=== PATIENT | female | born 1985 | race Caucasian/White ===

== ENCOUNTER 2025-07-15 10:52 | Inpatient (IN) | payer OTHER ==
[~2025-07-15] VITALS: Ht 152.4 cm; Wt 82.7 kg
[2025-07-15 12:30] LABS: PLATELET COUNT (AUTO) 448 K/uL (150-450); RED BLOOD CELL COUNT(AUTO) 4.37 MIL/uL (4.00-5.20); RED CELL DISTRIBUTION WIDTH 15.7 % (11.5-14.5); WHITE BLOOD COUNT (AUTO) 9.5 K/uL (4.5-11.0)
[2025-07-15 12:36] LABS: CALCIUM, TOTAL 9.0 mg/dL (8.8-10.5); CREATININE 0.59 mg/dL (0.60-1.30); GLOMERULAR FILTR. RATE CALC > 60 mL/min (>60); GLUCOSE,RANDOM 99 mg/dL (70-110); SODIUM SERUM 136 mmol/L (136-145); UREA NITROGEN, BLOOD 7 mg/dL (7-18)
[2025-07-15 12:45] LABS: TROPONIN I-HIGH SENSITIVITY 5 ng/L (<51)
[2025-07-15 12:47] LABS: ASPARTATE AMINOTRANSFERASE 24 U/L (15-37); HCG,QUANTITATIVE < 1 mIU/mL (0-6); TOTAL PROTEIN, SERUM 7.3 g/dL (6.4-8.2)
[2025-07-15] MEDS ORDERED: BISACODYL 10 MG RECTAL RECTAL SUPPOSITORY PR PRN (14:30)
[2025-07-15] MEDS ORDERED: ONDANSETRON HCL 4 MG/2 ML VIAL IVP PRN (14:30)
[2025-07-15] MEDS ORDERED: HYDROCODONE/ACETAMINOPHEN 5-325 MG TABLET PO PRN (14:30)
[2025-07-15] MEDS ORDERED: MAGNESIUM HYDROXIDE SUSPENSION 30 ML UDCUP PO PRN (14:30)
[2025-07-15] MEDS ORDERED: ACETAMINOPHEN 325 MG TABLET PO PRN (14:30)
[2025-07-15] MEDS ORDERED: MORPHINE SULFATE 2 MG/ML SYRINGE IVP PRN (14:30)
[2025-07-15] MEDS: HEPARIN SODIUM,PORCINE 5,000 UNITS/ML VIAL SQ SCH (17:05)
[2025-07-15 19:37] VITALS: BP 137/86; PULSE 60; RESP 16; TEMP 98.2; O2SAT 99
[2025-07-15] MEDS: DOCUSATE SODIUM 100 MG CAPSULE PO SCH (20:17)
[2025-07-15 20:50] LABS: GLUCOMETER DEV NAME(LOC) 4E.2; GLUCOSE,POINT OF CARE 98 MG/DL (70-110)
[2025-07-15 21:31] LABS: PH,URINE DRUG SCREEN 6.5 (5.0-8.0)
[2025-07-15 21:37] LABS: ALCOHOL, URINE DRUG SCREEN NEGATIVE (NEGATIVE); AMPHET/METH SCREEN,URINE NEGATIVE (NEGATIVE); BARBITURATE SCREEN, URINE NEGATIVE (NEGATIVE); CANNABINOID SCREEN,URINE NEGATIVE (NEGATIVE); COCAINE SCREEN,URINE NEGATIVE (NEGATIVE); METHADONE SCREEN, URINE NEGATIVE (NEGATIVE)
[2025-07-16] MEDS: ZOLPIDEM TARTRATE 5 MG TABLET PO PRN (04:08)
[2025-07-16 04:13] VITALS: BP 136/90; PULSE 68; RESP 18; TEMP 98.6; O2SAT 97
[2025-07-16 05:46] LABS: GLUCOMETER DEV NAME(LOC) 4E.2; GLUCOSE,POINT OF CARE 100 MG/DL (70-110)
[2025-07-16 06:48] LABS: PLATELET COUNT (AUTO) 407 K/uL (150-450); RED BLOOD CELL COUNT(AUTO) 4.13 MIL/uL (4.00-5.20); RED CELL DISTRIBUTION WIDTH 15.3 % (11.5-14.5); WHITE BLOOD COUNT (AUTO) 9.0 K/uL (4.5-11.0)
[2025-07-16 07:05] LABS: CALCIUM, TOTAL 9.0 mg/dL (8.8-10.5); CREATININE 0.52 mg/dL (0.60-1.30); GLOMERULAR FILTR. RATE CALC > 60 mL/min (>60); GLUCOSE,RANDOM 100 mg/dL (70-110); SODIUM SERUM 137 mmol/L (136-145); UREA NITROGEN, BLOOD 9 mg/dL (7-18)
[2025-07-16] MEDS: PANTOPRAZOLE SODIUM 40 MG DR TABLET PO SCH (08:33)
[2025-07-16] MEDS ORDERED: MAGN-169 PO (09:02)
[2025-07-16 09:07] VITALS: BP 120/81; PULSE 69; RESP 18; TEMP 97.9; O2SAT 96
[2025-07-16] MEDS ORDERED: HYDR25TA2 PO (09:28)
== END 2025-07-16 14:15 | DRG 305 ==
LOC: EMS 10:52 → EDH 14:30 → 6S 17:44
PROVIDERS: ADMIT Internal Medicine; ATTEND Internal Medicine
DX: I10 Essential (primary) hypertension (principal); E11.9 Type 2 diabetes mellitus without complications; E66.9 Obesity, unspecified; G43.909 Migraine, unspecified, not intractable, without status migrainosus; Z68.35 Body mass index [BMI] 35.0-35.9, adult
CPT/HCPCS: 71045; 80048; 80053; 80307; 82962; 83036; 84443; 84484; 84702; 85025; 93005; 93306; 99285; J1644; 36415-L1; 36415-TC